=== PATIENT | female | born 1990 | race Caucasian/White ===

== ENCOUNTER 2017-02-04 23:28 | Emergency (ER) | payer OTHER ==
[~2017-02-04] VITALS: Ht 175.3 cm; Wt 97.7 kg
[~2017-02-04 23:28] MED LIST: /MOM400 PO; ACET50TA PO; IBUP80TA PO; PERCOCET PO; PRENTAB74 PO
[2017-02-05] MEDS ORDERED: ACETAMINOPHEN 325 MG TAB PO ONE (00:15)
[2017-02-05 00:56] LABS: BASO % 0.4 % (0.0-1.0); EOS # 0.2 K/mm3 (0.0-0.50); LARGE UNSTAINED CELL # 0.2 K/mm3 (0.0-0.4); LARGE UNSTAINED CELL % 1.8 % (0.0-4.0); LYMPH # 2.2 K/mm3 (1.5-6.5); LYMPH % 26.8 % (24.0-44.0); MEAN CORPUSCULAR HEMOGLOBIN 29.9 pg (27.0-33.0); MEAN CORPUSCULAR HGB CONC 34.5 g/dl (32.0-36.5); MEAN CORPUSCULAR VOLUME 86.7 fl (80.0-96.0); MONO # 0.3 K/mm3 (0.0-0.8); MONO % 3.1 % (0.0-5.0); NEUTROPHILS # 5.4 K/mm3 (1.8-7.7); NEUTROPHILS % 65.9 % (36.0-66.0); PLATELET COUNT, AUTOMATED 248 k/mm3 (150-450); RED CELL DISTRIBUTION WIDTH 12.5 % (11.5-14.5); WHITE BLOOD COUNT 8.2 K/mm3 (4.0-10.0)
[2017-02-05 01:19] LABS: ALBUMIN 3.5 GM/DL (3.2-5.2); ALBUMIN/GLOBULIN RATIO 0.95 (1.00-1.93); ALKALINE PHOSPHATASE 170 U/L (45-117); ALT/SGPT 20 U/L (12-78); AMYLASE 35 U/L (25-115); ANION GAP 6 MEQ/L (8-16); AST/SGOT 14 U/L (15-37); BILIRUBIN,DIRECT < 0.1 MG/DL (0.0-0.2); BILIRUBIN,TOTAL 0.2 MG/DL (0.2-1.0); BLOOD UREA NITROGEN 15 MG/DL (7-18); CALCIUM LEVEL 8.5 MG/DL (8.5-10.1); CARBON DIOXIDE LEVEL 27 MEQ/L (21-32); CHLORIDE LEVEL 106 MEQ/L (98-107); CREATININE FOR GFR 0.91 MG/DL (0.55-1.02); GLOMERULAR FILTRATION RATE > 60.0 (>60); GLUCOSE, FASTING 101 MG/DL (70-105); POTASSIUM SERUM 3.9 MEQ/L (3.5-5.1); SODIUM LEVEL 139 MEQ/L (136-145); TOTAL PROTEIN 7.2 GM/DL (6.4-8.2)
[2017-02-05] MEDS ORDERED: CIPR-249 PO (01:52)
[2017-02-05] MEDS ORDERED: CIPROFLOXACIN 500 MG TAB PO ONE (02:00)
[2017-02-05 02:06] VITALS: BP 148/88
== END 2017-02-05 02:14 | disposition home or self-care (01) ==
LOC: M ED 23:28
DX: N39.0 Urinary tract infection, site not specified (principal)

== ENCOUNTER → 2017-05-05 | Outpatient (REF) | payer OTHER ==
[~2017-05-05] MED LIST changes: +CIPR-249 PO
[2017-05-05 11:26] LABS: MEAN CORPUSCULAR HEMOGLOBIN 29.5 pg (27.0-33.0); MEAN CORPUSCULAR HGB CONC 34.3 g/dl (32.0-36.5); PLATELET COUNT, AUTOMATED 233 10^3/uL (150-450); RED CELL DISTRIBUTION WIDTH 12.5 % (11.5-14.5); WHITE BLOOD COUNT 6.9 10^3/uL (4.0-10.0)
[2017-05-05 12:22] LABS: ALBUMIN 3.6 GM/DL (3.2-5.2); ALBUMIN/GLOBULIN RATIO 0.95 (1.00-1.93); ALKALINE PHOSPHATASE 154 U/L (45-117); ALT/SGPT 25 U/L (12-78); ANION GAP 9 MEQ/L (8-16); AST/SGOT 20 U/L (7-37); BILIRUBIN,TOTAL 0.3 MG/DL (0.2-1.0); BLOOD UREA NITROGEN 9 MG/DL (7-18); CALCIUM LEVEL 8.5 MG/DL (8.5-10.1); CARBON DIOXIDE LEVEL 25 MEQ/L (21-32); CHLORIDE LEVEL 106 MEQ/L (98-107); GLOMERULAR FILTRATION RATE > 60.0 (>60); GLUCOSE, FASTING 80 MG/DL (70-105); POTASSIUM SERUM 4.3 MEQ/L (3.5-5.1); SODIUM LEVEL 140 MEQ/L (136-145); TOTAL PROTEIN 7.4 GM/DL (6.4-8.2)
== END ==
LOC: M SFHCLERA 09:45
PROVIDERS: ATTEND Physician Assistant
DX: F43.23 Adjustment disorder with mixed anxiety and depressed mood (principal); E55.9 Vitamin D deficiency, unspecified

== ENCOUNTER → 2017-06-18 | Outpatient (CLI) | payer OTHER ==
[2017-06-18 09:30] LABS: ESTIMATED AVERAGE GLUCOSE 97 MG/DL (60-110)
[2017-06-18 09:40] LABS: CHOLESTEROL LEVEL 129 MG/DL (<200); CHOLESTEROL RISK RATIO 3.225 (<5); FREE T4 0.99 NG/DL (0.76-1.46); HDL CHOLESTEROL 40 MG/DL (>40); LDL CHOLESTEROL 73.6 MG/DL (<100); NON-HDL-C 89 MG/DL; TRIGLYCERIDES LEVEL 77 MG/DL (<150)
[2017-06-20 11:58] LABS: TOTAL 25(OH) VITAMIN D 18.1 NG/ML (30.0-100.0)
== END ==
LOC: M LAB 08:17
DX: F41.8 Other specified anxiety disorders (principal); Z13.1 Encounter for screening for diabetes mellitus; Z13.220 Encounter for screening for lipoid disorders
CPT/HCPCS: 84443

== ENCOUNTER → 2019-01-24 | Outpatient (CLI) | payer OTHER ==
[~2019-01-24] MED LIST changes: -/MOM400 PO; -ACET50TA PO; +MAPA500T17 PO; +MILK10SU PO; +OXYC1TAB23 PO; -PERCOCET PO
--- NOTE | 2019-01-24 12:48 | ECGEPIP ---
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
== END ==
LOC: M EKG 12:28
DX: Z79.899 Other long term (current) drug therapy (principal)

== ENCOUNTER → 2019-11-02 | Outpatient (CLI) | payer OTHER ==
[2019-11-02 10:12] LABS: BASO % 0.4 % (0.0-1.0); EOS # 0.2 10^3/uL (0.0-0.5); EOS % 2.9 % (0.0-3.0); HEMOGLOBIN 14.1 g/dl (12.0-15.5); LYMPH # 2.4 10^3/uL (1.5-5.0); LYMPH % 43.1 % (24.0-44.0); MEAN CORPUSCULAR HEMOGLOBIN 29.1 pg (27.0-33.0); MEAN CORPUSCULAR HGB CONC 34.4 g/dl (32.0-36.5); MEAN CORPUSCULAR VOLUME 84.7 fl (80.0-96.0); MONO # 0.4 10^3/uL (0.0-0.8); MONO % 7.2 % (0.0-5.0); NEUTROPHILS # 2.6 10^3/uL (1.5-8.5); NEUTROPHILS % 46.2 % (36.0-66.0); PLATELET COUNT, AUTOMATED 173 10^3/uL (150-450); RED BLOOD COUNT 4.84 10^6/uL (4.00-5.40); WHITE BLOOD COUNT 5.5 10^3/uL (4.0-10.0)
[2019-11-02 10:47] LABS: ALBUMIN 3.4 GM/DL (3.2-5.2); ALT/SGPT 36 U/L (12-78); BILIRUBIN,TOTAL 0.5 MG/DL (0.2-1.0); BLOOD UREA NITROGEN 7 MG/DL (7-18); CALCIUM LEVEL 8.7 MG/DL (8.5-10.1); CARBON DIOXIDE LEVEL 24 MEQ/L (21-32); CHLORIDE LEVEL 111 MEQ/L (98-107); CREATININE FOR GFR 0.74 MG/DL (0.55-1.30); FERRITIN 158 NG/ML (8-252); GLOMERULAR FILTRATION RATE > 60.0 (>60); GLUCOSE, FASTING 80 MG/DL (70-100); IRON (FE) 78 UG/DL (50-170); MAGNESIUM LEVEL 1.9 MG/DL (1.8-2.4); PERCENT SATURATION 33.6 % (13.2-45.0); PHOSPHORUS LEVEL 2.2 MG/DL (2.5-4.9); POTASSIUM SERUM 3.9 MEQ/L (3.5-5.1); SODIUM LEVEL 142 MEQ/L (136-145); TOTAL IRON BINDING CAPACITY 232 UG/DL (250-450)
[2019-11-02 10:55] LABS: TOTAL 25(OH) VITAMIN D 24.4 NG/ML (30.0-100.0); VITAMIN B12 LEVEL 443 PG/ML (247-911)
== END ==
LOC: M LAB 09:38
PROVIDERS: ATTEND Surgery
DX: K91.2 Postsurgical malabsorption, not elsewhere classified (principal); Z98.84 Bariatric surgery status; E55.9 Vitamin D deficiency, unspecified

== ENCOUNTER → 2021-11-09 | Outpatient (CLI) | payer OTHER ==
[2021-11-09 10:31] LABS: HEMATOCRIT 39.6 % (36.0-47.0)
[2021-11-09 11:01] LABS: HEMOGLOBIN A1c 4.8 %
[2021-11-09 11:03] LABS: ALBUMIN 3.4 GM/DL (3.2-5.2); ALT/SGPT 12 U/L (12-78); BILIRUBIN,TOTAL 0.5 MG/DL (0.2-1.0); BLOOD UREA NITROGEN 8 MG/DL (7-18); CALCIUM LEVEL 8.2 MG/DL (8.5-10.1); CARBON DIOXIDE LEVEL 30 MEQ/L (21-32); CHLORIDE LEVEL 110 MEQ/L (98-107); CREATININE FOR GFR 0.71 MG/DL (0.55-1.30); FERRITIN 22 NG/ML (8-252); GLOMERULAR FILTRATION RATE > 60.0 (>60); GLUCOSE, FASTING 79 MG/DL (70-100); IRON (FE) 89 UG/DL (50-170); MAGNESIUM LEVEL 1.8 MG/DL (1.8-2.4); PERCENT SATURATION 33.6 % (13.2-45.0); PHOSPHORUS LEVEL 3.5 MG/DL (2.5-4.9); POTASSIUM SERUM 4.4 MEQ/L (3.5-5.1); SODIUM LEVEL 142 MEQ/L (136-145); TOTAL IRON BINDING CAPACITY 265 UG/DL (250-450); TOTAL PROTEIN 6.7 GM/DL (6.4-8.2)
[2021-11-09 11:07] LABS: VITAMIN B12 LEVEL 245 PG/ML (247-911)
== END ==
LOC: M LAB 09:40
PROVIDERS: ATTEND Physician Assistant
DX: K91.2 Postsurgical malabsorption, not elsewhere classified (principal); Z98.84 Bariatric surgery status; E55.9 Vitamin D deficiency, unspecified; Z86.39 Personal history of other endocrine, nutritional and metabolic disease

== ENCOUNTER → 2022-01-15 | Outpatient (REF) | payer OTHER ==
[2022-01-15 12:44] LABS: APPEARANCE, URINE MANUAL HAZY (CLEAR); COLOR, URINE MANUAL YELLOW (YELLOW)
[2022-01-15 12:45] LABS: GLUCOSE, URINE (UA) MANUAL NEGATIVE (NEGATIVE); KETONE, URINE MANUAL NEGATIVE (NEGATIVE); PH,URINE MAN 6.5 UNITS (5.0 - 7.0); PROTEIN, URINE MANUAL NEGATIVE (NEGATIVE); SPECIFIC GRAVITY,URINE MANUAL 1.015 (1.002-1.035); UROBILINOGEN, URINE MANUAL 1 MG mg/dl (NORMAL)
[2022-01-15 12:46] LABS: BILIRUBIN, URINE MANUAL NEGATIVE (NEGATIVE); BLOOD URINE MANUAL TRACE (NEGATIVE); LEUKOCYTE ESTERASE, URINE MAN POSITIVE (NEGATIVE); NITRITE, URINE MANUAL NEGATIVE (NEGATIVE)
[2022-01-15 14:14] LABS: WBC, URINE TNTC /hpf (0-3)
[2022-01-15 14:15] LABS: BACTERIA, URINE SMALL AMOUNT; HYALINE CAST, URINE NONE SEEN /lpf (0-1); MUCUS, URINE SMALL AMOUNT (NEGATIVE); SQUAMOUS EPITHELIAL CELL URINE SMALL AMOUNT /hpf (SMALL AMT)
== END ==
LOC: M LAB REF 12:06
PROVIDERS: ATTEND Physician Assistant
DX: N39.0 Urinary tract infection, site not specified (principal)

== ENCOUNTER → 2022-02-03 | Outpatient (CLI) | payer OTHER ==
[2022-02-03 09:55] LABS: BASO % 0.8 % (0.0-1.0); EOS # 0.2 10^3/uL (0.0-0.5); EOS % 3.7 % (0.0-3.0); HEMOGLOBIN 12.5 g/dl (12.0-15.5); LYMPH # 1.7 10^3/uL (1.5-5.0); LYMPH % 33.9 % (24.0-44.0); MEAN CORPUSCULAR HEMOGLOBIN 29.7 pg (27.0-33.0); MEAN CORPUSCULAR HGB CONC 32.9 g/dl (32.0-36.5); MEAN CORPUSCULAR VOLUME 90.3 fl (80.0-96.0); MONO # 0.4 10^3/uL (0.0-0.8); MONO % 6.8 % (2.0-8.0); NEUTROPHILS # 2.8 10^3/uL (1.5-8.5); NEUTROPHILS % 54.6 % (36.0-66.0); PLATELET COUNT, AUTOMATED 224 10^3/uL (150-450); RED BLOOD COUNT 4.21 10^6/uL (4.00-5.40); WHITE BLOOD COUNT 5.1 10^3/uL (4.0-10.0)
[2022-02-03 10:38] LABS: ALBUMIN 3.6 GM/DL (3.2-5.2); ALT/SGPT 11 U/L (12-78); BILIRUBIN,TOTAL 0.4 MG/DL (0.2-1.0); BLOOD UREA NITROGEN 11 MG/DL (7-18); CALCIUM LEVEL 8.8 MG/DL (8.5-10.1); CARBON DIOXIDE LEVEL 29 MEQ/L (21-32); CHLORIDE LEVEL 105 MEQ/L (98-107); CHOLESTEROL LEVEL 119 MG/DL (<200); CHOLESTEROL RISK RATIO 2.333 (<5); CREATININE FOR GFR 0.66 MG/DL (0.55-1.30); GLOMERULAR FILTRATION RATE > 60.0 (>60); GLUCOSE, FASTING 71 MG/DL (70-100); HDL CHOLESTEROL 51 MG/DL (>40); LDL CHOLESTEROL 60 MG/DL (<100); NON-HDL-C 68 MG/DL; POTASSIUM SERUM 3.7 MEQ/L (3.5-5.1); SODIUM LEVEL 137 MEQ/L (136-145); TOTAL PROTEIN 6.6 GM/DL (6.4-8.2); TRIGLYCERIDES LEVEL 42 MG/DL (<150)
[2022-02-03 10:40] LABS: HEMOGLOBIN A1c 4.9 %
== END ==
LOC: M EKG 08:59
PROVIDERS: ATTEND Nurse Practitioner Psychiatric/Mental Health
DX: F43.12 Post-traumatic stress disorder, chronic (principal); R00.1 Bradycardia, unspecified; I49.9 Cardiac arrhythmia, unspecified

== ENCOUNTER → 2022-09-14 | Outpatient (REF) | payer OTHER | LOC: M LAB REF 16:41 | PROVIDERS: ATTEND Pediatrics | DX: R30.0 Dysuria (principal) ==

== ENCOUNTER → 2022-09-25 | Outpatient (CLI) | payer OTHER ==
[2022-09-25 10:05] LABS: HEMATOCRIT 40.1 % (36.0-47.0)
[2022-09-25 10:06] LABS: BASO % 0.8 % (0.0-1.0); EOS % 0.8 % (0.0-3.0); HEMATOCRIT 40.5 % (36.0-47.0); LYMPH # 1.7 10^3/uL (1.5-5.0); MEAN CORPUSCULAR HEMOGLOBIN 28.3 pg (27.0-33.0); MEAN CORPUSCULAR HGB CONC 32.1 g/dl (32.0-36.5); MEAN CORPUSCULAR VOLUME 88.2 fl (80.0-96.0); MONO # 0.5 10^3/uL (0.0-0.8); MONO % 9.1 % (2.0-8.0); NEUTROPHILS % 56.1 % (36.0-66.0); PLATELET COUNT, AUTOMATED 221 10^3/uL (150-450); RED BLOOD COUNT 4.59 10^6/uL (4.00-5.40); WHITE BLOOD COUNT 5.3 10^3/uL (4.0-10.0)
[2022-09-25 10:25] LABS: HEMOGLOBIN A1c 4.8 % (4.0-6.0)
[2022-09-25 10:32] LABS: ALBUMIN 3.8 G/DL (3.2-5.2); ALKALINE PHOSPHATASE 172 U/L (46-116); ALT/SGPT 12 U/L (7.0-40); AST/SGOT 20 U/L (<34); BILIRUBIN,TOTAL 0.6 MG/DL (0.3-1.2); BLOOD UREA NITROGEN 9 MG/DL (9-23); CARBON DIOXIDE LEVEL 23 MMOL/L (20-31); CHLORIDE LEVEL 109 MMOL/L (98-107); CREATININE FOR GFR 0.79 MG/DL (0.55-1.30); GLOMERULAR FILTRATION RATE > 60.0 (>60); GLUCOSE, FASTING 71 MG/DL (60-100); IRON (FE) 106 UG/DL (50-170); MAGNESIUM LEVEL 1.8 MG/DL (1.8-2.4); PERCENT SATURATION 30.5 % (13.2-45.0); PHOSPHORUS LEVEL 3.2 MG/DL (2.5-4.9); POTASSIUM SERUM 4.2 MMOL/L (3.5-5.1); SODIUM LEVEL 140 MMOL/L (136-145); TOTAL IRON BINDING CAPACITY 347 UG/DL (250-425); TOTAL PROTEIN 7.2 G/DL (5.7-8.2)
[2022-09-25 10:34] LABS: FERRITIN 10.1 NG/ML (7.3-270.7); VITAMIN B12 LEVEL 702 PG/ML (211-911)
[2022-09-25 10:35] LABS: TOTAL 25(OH) VITAMIN D 27.5 NG/ML (20.0-100.0)
== END ==
LOC: M LAB 09:26
PROVIDERS: ATTEND Surgery
DX: K91.2 Postsurgical malabsorption, not elsewhere classified (principal); Z98.84 Bariatric surgery status; E55.9 Vitamin D deficiency, unspecified; Z86.39 Personal history of other endocrine, nutritional and metabolic disease

== ENCOUNTER → 2022-12-06 | Outpatient (REF) | payer OTHER ==
[2022-12-06 18:08] LABS: APPEARANCE, URINE HAZY (CLEAR); BACTERIA, URINE AUTO 1+ (NEGATIVE); BILIRUBIN, URINE AUTO NEGATIVE (NEGATIVE); BLOOD, URINE BLOOD 2+ (NEGATIVE); COLOR, URINE YELLOW (YELLOW); GLUCOSE, URINE (UA) AUTO NEGATIVE (NEGATIVE); KETONE, URINE AUTO NEGATIVE (NEGATIVE); LEUKOCYTE ESTERASE, URINE AUTO 3+ (NEGATIVE); MUCUS, URINE SMALL (NEGATIVE); NITRITE, URINE AUTO NEGATIVE (NEGATIVE); PROTEIN, URINE AUTO NEGATIVE (NEGATIVE); RBC, URINE AUTO 6 /HPF (0-3); SPECIFIC GRAVITY URINE AUTO 1.029 (1.002-1.035); SQUAMOUS EPITHELIAL CELL UR AU 6 /HPF (0-6); WBC, URINE AUTO 62 /HPF (0-3)
== END ==
LOC: M SMT 17:01
PROVIDERS: ATTEND Specialist
DX: N39.0 Urinary tract infection, site not specified (principal)

== ENCOUNTER → 2023-04-01 | Outpatient (REF) | payer OTHER ==
[2023-04-01 14:07] LABS: APPEARANCE, URINE CLOUDY (CLEAR); BACTERIA, URINE AUTO 1+ (NEGATIVE); BILIRUBIN, URINE AUTO NEGATIVE (NEGATIVE); BLOOD, URINE BLOOD NEGATIVE (NEGATIVE); COLOR, URINE AMBER (YELLOW); GLUCOSE, URINE (UA) AUTO NEGATIVE (NEGATIVE); KETONE, URINE AUTO TRACE mg/dL (NEGATIVE); LEUKOCYTE ESTERASE, URINE AUTO 3+ (NEGATIVE); MUCUS, URINE LARGE (NEGATIVE); NITRITE, URINE AUTO NEGATIVE (NEGATIVE); PROTEIN, URINE AUTO 1+ mg/dL (NEGATIVE); RBC, URINE AUTO 5 /HPF (0-3); SQUAMOUS EPITHELIAL CELL UR AU 14 /HPF (0-6); WBC, URINE AUTO 150 /HPF (0-3)
== END ==
LOC: M SMT 12:55
PROVIDERS: ATTEND Specialist
DX: N39.0 Urinary tract infection, site not specified (principal)

== ENCOUNTER → 2023-04-29 | Outpatient (CLI) | payer OTHER | LOC: M PLAIMG 09:11 | PROVIDERS: ATTEND Specialist | DX: N39.0 Urinary tract infection, site not specified (principal) ==

== ENCOUNTER → 2023-08-03 | Outpatient (CLI) | payer OTHER ==
[2023-08-03 11:10] LABS: BASO % 0.6 % (0.0-1.0); EOS # 0.1 10^3/uL (0.0-0.5); EOS % 1.1 % (0.0-3.0); HEMATOCRIT 35.8 % (36.0-47.0); HEMOGLOBIN 11.9 g/dl (12.0-15.5); LYMPH # 1.8 10^3/uL (1.5-5.0); LYMPH % 27.9 % (24.0-44.0); MEAN CORPUSCULAR HEMOGLOBIN 28.8 pg (27.0-33.0); MEAN CORPUSCULAR HGB CONC 33.2 g/dl (32.0-36.5); MEAN CORPUSCULAR VOLUME 86.7 fl (80.0-96.0); MONO # 0.5 10^3/uL (0.0-0.8); MONO % 7.7 % (2.0-8.0); NEUTROPHILS % 62.5 % (36.0-66.0); PLATELET COUNT, AUTOMATED 242 10^3/uL (150-450); RED BLOOD COUNT 4.13 10^6/uL (4.00-5.40); WHITE BLOOD COUNT 6.4 10^3/uL (4.0-10.0)
[2023-08-03 11:39] LABS: ALBUMIN 3.8 G/DL (3.2-5.2); ALKALINE PHOSPHATASE 153 U/L (46-116); ALT/SGPT 11 U/L (7.0-40); AST/SGOT 19 U/L (<34); BILIRUBIN,TOTAL 0.6 MG/DL (0.3-1.2); BLOOD UREA NITROGEN 8 MG/DL (9-23); CARBON DIOXIDE LEVEL 26 MMOL/L (20-31); CHLORIDE LEVEL 109 MMOL/L (98-107); CHOLESTEROL LEVEL 115 MG/DL (<200); CHOLESTEROL RISK RATIO 2.46 (<5); CREATININE FOR GFR 0.71 MG/DL (0.55-1.30); GLOMERULAR FILTRATION RATE > 60.0 (>60); GLUCOSE, FASTING 78 MG/DL (60-100); HDL CHOLESTEROL 46.7 MG/DL (>40); LDL CHOLESTEROL 60.3 MG/DL (<100); NON-HDL-C 68.3 MG/DL; POTASSIUM SERUM 4.4 MMOL/L (3.5-5.1); PROLACTIN 4.26 NG/ML; SODIUM LEVEL 140 MMOL/L (136-145); THYROID STIMULATING HORMONE 1.367 uIU/ML (0.55-4.78); TOTAL PROTEIN 6.8 G/DL (5.7-8.2); TRIGLYCERIDES LEVEL 40 MG/DL (<150)
[2023-08-03 11:41] LABS: TOTAL 25(OH) VITAMIN D 17.4 NG/ML (20.0-100.0)
[2023-08-03 11:42] LABS: VITAMIN B12 LEVEL 801 PG/ML (211-911)
== END ==
LOC: M LAB 09:41
PROVIDERS: ATTEND Nurse Practitioner Psychiatric/Mental Health
DX: F33.2 Major depressive disorder, recurrent severe without psychotic features (principal)

== ENCOUNTER → 2023-08-30 | Outpatient (REF) | payer OTHER ==
[2023-08-30 14:09] LABS: ALKALINE PHOSPHATASE 166 U/L (46-116); BLOOD UREA NITROGEN 11 MG/DL (9-23); CALCIUM LEVEL 8.8 MG/DL (8.5-10.1); CARBON DIOXIDE LEVEL 26 MMOL/L (20-31); CHLORIDE LEVEL 108 MMOL/L (98-107); CREATININE FOR GFR 0.65 MG/DL (0.55-1.30); GLOMERULAR FILTRATION RATE > 60.0 (>60); GLUCOSE, FASTING 88 MG/DL (60-100); POTASSIUM SERUM 4.5 MMOL/L (3.5-5.1); PTH INTACT 162.3 PG/ML (18.5-88.0); SODIUM LEVEL 139 MMOL/L (136-145)
== END ==
LOC: M LAB REF 11:53
PROVIDERS: ATTEND Pediatrics
DX: E83.51 Hypocalcemia (principal)

== ENCOUNTER → 2023-09-09 | Outpatient (CLI) | payer OTHER ==
[2023-09-09 08:35] LABS: IONIZED CALCIUM 4.6 MG/DL (4.5-5.3)
[2023-09-09 09:32] LABS: PTH INTACT 130.3 PG/ML (18.5-88.0)
== END ==
LOC: M LAB 08:02
PROVIDERS: ATTEND Pediatrics
DX: E21.3 Hyperparathyroidism, unspecified (principal)

== ENCOUNTER → 2023-09-23 | Outpatient (CLI) | payer OTHER | LOC: M RAD 15:55 | PROVIDERS: ATTEND Pediatrics | DX: E21.3 Hyperparathyroidism, unspecified (principal); E04.2 Nontoxic multinodular goiter ==

== ENCOUNTER → 2023-11-17 | Outpatient (REF) | payer OTHER ==
[2023-11-17 14:44] LABS: APPEARANCE, URINE HAZY (CLEAR); BACTERIA, URINE AUTO NEGATIVE (NEGATIVE); BILIRUBIN, URINE AUTO NEGATIVE (NEGATIVE); BLOOD, URINE BLOOD NEGATIVE (NEGATIVE); COLOR, URINE YELLOW (YELLOW); GLUCOSE, URINE (UA) AUTO NEGATIVE (NEGATIVE); KETONE, URINE AUTO NEGATIVE (NEGATIVE); LEUKOCYTE ESTERASE, URINE AUTO TRACE (NEGATIVE); MUCUS, URINE SMALL (NEGATIVE); NITRITE, URINE AUTO NEGATIVE (NEGATIVE); PROTEIN, URINE AUTO NEGATIVE (NEGATIVE); RBC, URINE AUTO 1 /HPF (0-3); SPECIFIC GRAVITY URINE AUTO 1.017 (1.002-1.035); SQUAMOUS EPITHELIAL CELL UR AU 2 /HPF (0-6); WBC, URINE AUTO 12 /HPF (0-3)
== END ==
LOC: M SMT 12:42
PROVIDERS: ATTEND Physician Assistant
DX: R30.0 Dysuria (principal)

== ENCOUNTER → 2023-11-21 | Outpatient (CLI) | payer OTHER ==
[2023-11-21 12:49] LABS: CALCIUM LEVEL 8.6 MG/DL (8.5-10.1)
[2023-11-21 12:50] LABS: PTH INTACT 141.6 PG/ML (18.5-88.0)
[2023-11-21 12:52] LABS: TOTAL 25(OH) VITAMIN D 11.6 NG/ML (20.0-100.0)
== END ==
LOC: M PLALAB 09:58
PROVIDERS: ATTEND Nurse Practitioner Family
DX: E21.1 Secondary hyperparathyroidism, not elsewhere classified (principal)

== ENCOUNTER → 2024-01-18 | Outpatient (REF) | payer OTHER ==
[2024-01-18 17:44] LABS: PERCENT SATURATION 15.1 % (13.2-45.0)
[2024-01-18 17:47] LABS: BASO % 0.5 % (0.0-1.0); EOS # 0.1 10^3/uL (0.0-0.5); EOS % 1.1 % (0.0-3.0); FERRITIN 8.3 NG/ML (7.3-270.7); HEMATOCRIT 34.2 % (36.0-47.0); HEMOGLOBIN 10.8 g/dl (12.0-15.5); LYMPH % 32.3 % (24.0-44.0); MEAN CORPUSCULAR HEMOGLOBIN 26.6 pg (27.0-33.0); MEAN CORPUSCULAR HGB CONC 31.6 g/dl (32.0-36.5); MEAN CORPUSCULAR VOLUME 84.2 fl (80.0-96.0); MONO # 0.6 10^3/uL (0.0-0.8); MONO % 9.2 % (2.0-8.0); NEUTROPHILS # 3.5 10^3/uL (1.5-8.5); NEUTROPHILS % 56.7 % (36.0-66.0); PLATELET COUNT, AUTOMATED 188 10^3/uL (150-450); RED BLOOD COUNT 4.06 10^6/uL (4.00-5.40); WHITE BLOOD COUNT 6.1 10^3/uL (4.0-10.0)
== END ==
LOC: M LAB REF 16:22
PROVIDERS: ATTEND Pediatrics
DX: K21.9 Gastro-esophageal reflux disease without esophagitis (principal)

== ENCOUNTER → 2024-01-23 | Outpatient (REF) | payer OTHER ==
[2024-01-23 11:54] LABS: ALBUMIN 3.8 G/DL (3.2-5.2); ALKALINE PHOSPHATASE 160 U/L (46-116); ALT/SGPT 17 U/L (7.0-40); AST/SGOT 25 U/L (<34); BILIRUBIN,DIRECT 0.2 MG/DL (<0.4); BILIRUBIN,TOTAL 0.4 MG/DL (0.3-1.2); TOTAL PROTEIN 7.1 G/DL (5.7-8.2)
== END ==
LOC: M LAB REF 11:33
PROVIDERS: ATTEND Pediatrics
DX: Z79.899 Other long term (current) drug therapy (principal)

== ENCOUNTER → 2024-01-24 | Outpatient (CLI) | payer OTHER ==
[2024-01-24 16:30] LABS: INR 1.08; PARTIAL THROMBOPLASTIN TIME 33.8 SECONDS (24.8-34.2); PROTHROMBIN TIME 13.7 SECONDS (12.5-14.5)
== END ==
LOC: M LAB 15:19
PROVIDERS: ATTEND Pediatrics
DX: Z79.899 Other long term (current) drug therapy (principal)

== ENCOUNTER → 2024-01-24 | Outpatient (REF) | payer OTHER ==
[2024-01-24 13:21] LABS: ALBUMIN 3.6 G/DL (3.2-5.2); BILIRUBIN,DIRECT 0.1 MG/DL (<0.4); BILIRUBIN,TOTAL 0.4 MG/DL (0.3-1.2); TOTAL PROTEIN 6.9 G/DL (5.7-8.2)
== END ==
LOC: M LAB REF 11:39
PROVIDERS: ATTEND Pediatrics
DX: Z79.899 Other long term (current) drug therapy (principal)

== ENCOUNTER → 2024-01-26 | Outpatient (REF) | payer OTHER ==
[2024-01-26 09:46] LABS: INR 1.11; PARTIAL THROMBOPLASTIN TIME 34.1 SECONDS (24.8-34.2)
[2024-01-26 18:59] LABS: ALBUMIN 3.8 G/DL (3.2-5.2); BILIRUBIN,DIRECT 0.2 MG/DL (<0.4); BILIRUBIN,TOTAL 0.4 MG/DL (0.3-1.2)
== END ==
LOC: M LAB REF 09:20
PROVIDERS: ATTEND Pediatrics
DX: Z51.81 Encounter for therapeutic drug level monitoring (principal); Z79.899 Other long term (current) drug therapy

== ENCOUNTER → 2024-03-03 | Outpatient (CLI) | payer OTHER ==
[2024-03-03 14:01] LABS: PTH INTACT 158.2 PG/ML (18.5-88.0)
[2024-03-03 14:03] LABS: FREE T4 1.11 NG/DL (0.89-1.76); THYROID STIMULATING HORMONE 1.373 uIU/ML (0.55-4.78); TOTAL 25(OH) VITAMIN D 20.9 NG/ML (20.0-100.0)
== END ==
LOC: M LAB 12:59
PROVIDERS: ATTEND Nurse Practitioner Family
DX: E21.1 Secondary hyperparathyroidism, not elsewhere classified (principal); E55.9 Vitamin D deficiency, unspecified; E04.2 Nontoxic multinodular goiter

== ENCOUNTER → 2024-03-07 | Outpatient (REF) | payer OTHER ==
[2024-03-07 16:57] LABS: FOLATE 23.8 NG/ML (>5.4)
[2024-03-07 17:00] LABS: HEMOGLOBIN A1c 5.1 % (4.0-6.0)
[2024-03-09 10:02] LABS: C-PEPTIDE 1.05 ng/mL (0.80-3.85)
== END ==
LOC: M LAB REF 16:12
PROVIDERS: ATTEND Pediatrics
DX: K91.2 Postsurgical malabsorption, not elsewhere classified (principal); E16.2 Hypoglycemia, unspecified

== ENCOUNTER → 2024-03-15 | Outpatient (CLI) | payer OTHER ==
[2024-03-15 10:19] LABS: HEMATOCRIT 37.7 % (36.0-47.0); MEAN CORPUSCULAR HEMOGLOBIN 27.2 pg (27.0-33.0); MEAN CORPUSCULAR HGB CONC 31.8 g/dl (32.0-36.5); MEAN CORPUSCULAR VOLUME 85.5 fl (80.0-96.0); PLATELET COUNT, AUTOMATED 230 10^3/uL (150-450); RED BLOOD COUNT 4.41 10^6/uL (4.00-5.40); WHITE BLOOD COUNT 7.1 10^3/uL (4.0-10.0)
[2024-03-15 10:35] LABS: INR 1.16; PROTHROMBIN TIME 14.4 SECONDS (12.5-14.5)
== END ==
LOC: M PLALAB 08:25
PROVIDERS: ATTEND Dentist
DX: K74.69 Other cirrhosis of liver (principal)

== ENCOUNTER → 2024-03-19 | Outpatient (CLI) | payer OTHER | LOC: M PLALAB 16:18 | PROVIDERS: ATTEND Nurse Practitioner Family | DX: E55.9 Vitamin D deficiency, unspecified (principal) ==

== ENCOUNTER 2024-07-11 14:07 | Inpatient (IN) | payer MEDICAID, OTHER ==
[~2024-07-11] VITALS: Ht 170.2 cm; Wt 88.0 kg
[2024-07-11 14:48] LABS: HEMATOCRIT 36.3 % (36.0-47.0); HEMOGLOBIN 11.5 g/dl (12.0-15.5); MEAN CORPUSCULAR HEMOGLOBIN 26.4 pg (27.0-33.0); MEAN CORPUSCULAR HGB CONC 31.7 g/dl (32.0-36.5); MEAN CORPUSCULAR VOLUME 83.4 fl (80.0-96.0); PLATELET COUNT, AUTOMATED 236 10^3/uL (150-450); RED BLOOD COUNT 4.35 10^6/uL (4.00-5.40); WHITE BLOOD COUNT 7.2 10^3/uL (4.0-10.0)
[2024-07-11 15:32] LABS: ETHYL ALCOHOL (ETHANOL) 0.004 % (0.000-0.010)
[2024-07-11 15:34] LABS: ALKALINE PHOSPHATASE 173 U/L (35-104); ALT/SGPT 11 U/L (7.0-40); AST/SGOT 17 U/L (<34); BILIRUBIN,DIRECT 0.2 MG/DL (<0.4); BILIRUBIN,TOTAL 0.6 MG/DL (0.3-1.2); BLOOD UREA NITROGEN 8 MG/DL (9-23); CALCIUM LEVEL 9.1 MG/DL (8.5-10.1); CARBON DIOXIDE LEVEL 25 MMOL/L (20-31); CHLORIDE LEVEL 106 MMOL/L (98-107); CREATININE FOR GFR 0.63 MG/DL (0.55-1.30); GLOMERULAR FILTRATION RATE > 60.0 (>60); GLUCOSE, FASTING 134 MG/DL (60-100); POTASSIUM SERUM 4.2 MMOL/L (3.5-5.1); SALICYLATE LEVEL < 3.0 MG/DL (<30); SODIUM LEVEL 139 MMOL/L (136-145); TOTAL PROTEIN 7.7 G/DL (5.7-8.2)
[2024-07-11 15:36] LABS: THYROID STIMULATING HORMONE 2.031 uIU/ML (0.55-4.78)
[2024-07-11 16:23] LABS: AMPHETAMINES LEVEL URINE NEGATIVE (NEGATIVE); BARBITURATES URINE NEGATIVE (NEGATIVE); BENZODIAZEPINES URINE NEGATIVE (NEGATIVE); CANNABINOIDS URINE NEGATIVE (NEGATIVE); COCAINE METABOLITE URINE NEGATIVE (NEGATIVE); METHADONE URINE NEGATIVE (NEGATIVE); OPIATES URINE NEGATIVE (NEGATIVE); PHENCYCLIDINE URINE NEGATIVE (NEGATIVE)
[2024-07-11] MEDS ORDERED: IBUPROFEN 400MG TAB PO PRN (18:00)
[2024-07-11] MEDS ORDERED: MOM 30ML SUSPENSION UDC PO PRN (18:00)
[2024-07-11] MEDS ORDERED: MAALOX 30 ML SUSP *UDC PO PRN (18:00)
[2024-07-11] MEDS ORDERED: CYAN1000VL SQ (18:08)
[2024-07-11] MEDS ORDERED: AMIT10TA7 PO (18:08)
[2024-07-11] MEDS ORDERED: PRAZ2CAP PO (18:08)
[2024-07-11] MEDS ORDERED: D-3-50003 PO (18:08)
[2024-07-11] MEDS ORDERED: LAMO150T3 PO (18:08)
[2024-07-11] MEDS ORDERED: CALCD50TA PO (18:09)
[2024-07-11] MEDS ORDERED: THERTAB52 PO (18:09)
[2024-07-11] MEDS ORDERED: HOME MED LIST COMPLETE! XX SCH (18:10)
[2024-07-11 20:15] VITALS: BP 177/76; TEMP 97.4; O2SAT 98
[2024-07-11] MEDS: PRAZOSIN 1 MG CAP PO SCH (22:24)
[2024-07-11] MEDS: traZODone 50 MG TAB PO PRN (22:24)
[2024-07-12 06:29] VITALS: BP 105/58; TEMP 97.4; O2SAT 99
[2024-07-12] MEDS: ACETAMINOPHEN 325 MG TAB PO PRN (07:35)
[2024-07-12 07:38] VITALS: BP 121/79; O2SAT 97
[2024-07-12] MEDS: AMITRIPTYLINE 10MG TABLET PO SCH (09:53)
[2024-07-12] MEDS: GABAPENTIN 100 MG CAP PO SCH (11:58)
[2024-07-12 16:26] VITALS: BP 138/75; TEMP 97.3; O2SAT 100
[2024-07-13 06:33] VITALS: BP 131/68; TEMP 97.6; O2SAT 99
[2024-07-13 16:03] VITALS: BP 137/65; TEMP 98.6; O2SAT 96
[2024-07-14 06:26] VITALS: BP 118/62; TEMP 98; O2SAT 98
[2024-07-14 15:26] VITALS: BP 132/78; TEMP 98.5; O2SAT 100
[2024-07-14] MEDS: GABAPENTIN 100 MG CAP PO SCH (20:20)
[2024-07-15 06:31] VITALS: BP 126/69; TEMP 97.3; O2SAT 100
[2024-07-15] MEDS: GABAPENTIN 100 MG CAP PO SCH (15:24)
[2024-07-15 15:55] VITALS: BP 136/64; TEMP 98.7; O2SAT 100
[2024-07-15] MEDS: hydrOXYzine 50 MG TAB PO SCH (20:40)
[2024-07-15] MEDS: diphenhydrAMINE 25MG CAP PO PRN (20:40)
[2024-07-16 06:54] VITALS: BP 113/65; TEMP 97.5; O2SAT 100
[2024-07-16 16:04] VITALS: BP 137/73; TEMP 97; O2SAT 100
[2024-07-16 21:01] VITALS: BP 132/74
[2024-07-16] MEDS: OLANZapine ORAL DISINTEGRATING TAB 5MG PO PRN (21:55)
[2024-07-17 06:20] VITALS: BP 135/68; TEMP 97; O2SAT 98
[2024-07-17] MEDS ORDERED: GABA-1171 PO (11:04)
[2024-07-17] MEDS ORDERED: PRAZ1CAP PO (11:04)
[2024-07-17] MEDS ORDERED: HYDR50TA70 PO (11:04)
== END 2024-07-17 12:55 | disposition home or self-care (01) | DRG 753 ==
LOC: M ED 14:07 → M ED INP 18:00 → M PSY 20:10
PROVIDERS: ADMIT Psychiatry & Neurology Neurology; ATTEND Psychiatry & Neurology Neurology
DX: F31.81 Bipolar II disorder (principal); R45.851 Suicidal ideations; F60.3 Borderline personality disorder; F41.1 Generalized anxiety disorder; Z91.040 Latex allergy status; Z88.5 Allergy status to narcotic agent; Z88.8 Allergy status to other drugs, medicaments and biological substances; Z62.810 Personal history of physical and sexual abuse in childhood

== ENCOUNTER 2024-08-27 10:29 | Emergency (ER) | payer MEDICAID, OTHER ==
[~2024-08-27] VITALS: Ht 170.2 cm; Wt 89.0 kg
[~2024-08-27 10:29] MED LIST changes: +AMIT10TA7 PO; +CALCD50TA PO; +CYAN1000VL SQ; +D-3-50003 PO; +GABA-1171 PO; +HYDR50TA70 PO; +LAMO150T3 PO; +PRAZ1CAP PO; +PRAZ2CAP PO; +THERTAB52 PO
[2024-08-27 13:01] LABS: KETONE, URINE AUTO RFX NEGATIVE (NEGATIVE); LEUKOCYTE ESTERASE UR AUTO RFX NEGATIVE (NEGATIVE); MUCUS, URINE RFX SMALL (NEGATIVE); NITRITE, URINE AUTO RFX NEGATIVE (NEGATIVE); RBC, URINE AUTO RFX 0 /HPF (0-3); SQUAM EPITHELIAL CELL UR AURFX 4 /HPF (0-6); WBC, URINE AUTO RFX 1 /HPF (0-3)
[2024-08-27 15:22] LABS: BASO % 0.6 % (0.0-1.0); EOS % 0.7 % (0.0-3.0); HEMATOCRIT 34.2 % (36.0-47.0); HEMOGLOBIN 10.7 g/dl (12.0-15.5); LYMPH % 36.7 % (24.0-44.0); MEAN CORPUSCULAR HEMOGLOBIN 25.7 pg (27.0-33.0); MEAN CORPUSCULAR HGB CONC 31.3 g/dl (32.0-36.5); MONO # 0.4 10^3/uL (0.0-0.8); MONO % 7.8 % (2.0-8.0); NEUTROPHILS # 2.9 10^3/uL (1.5-8.5); NEUTROPHILS % 53.8 % (36.0-66.0); PLATELET COUNT, AUTOMATED 224 10^3/uL (150-450); RED BLOOD COUNT 4.17 10^6/uL (4.00-5.40); WHITE BLOOD COUNT 5.4 10^3/uL (4.0-10.0)
[2024-08-27 15:53] LABS: ALBUMIN 3.9 G/DL (3.2-5.2); BILIRUBIN,DIRECT 0.2 MG/DL (<0.4); BILIRUBIN,TOTAL 0.5 MG/DL (0.3-1.2); TOTAL PROTEIN 7.3 G/DL (5.7-8.2)
[2024-08-27 16:48] VITALS: BP 113/64; TEMP 96.7; O2SAT 100
== END 2024-08-27 17:09 | disposition home or self-care (01) ==
LOC: M ED 10:29
DX: R10.32 Left lower quadrant pain (principal); F32.A Depression, unspecified; F41.9 Anxiety disorder, unspecified; F12.10 Cannabis abuse, uncomplicated; Z98.84 Bariatric surgery status; Z88.5 Allergy status to narcotic agent; Z91.011 Allergy to milk products; Z91.040 Latex allergy status; Z79.899 Other long term (current) drug therapy